=== PATIENT | female | born 1985 | race Caucasian/White ===

== ENCOUNTER 2019-09-26 17:03 | Emergency (ER) | payer OTHER ==
[2019-09-26] MEDS ORDERED: NS 1000 ML IV.SOLN IV ONE (17:56)
[2019-09-26] MEDS ORDERED: KETOROLAC TROMETHAMINE 30 MG VIAL ONE (17:56)
[2019-10-10 09:02] LABS: CALCIUM 9.6 mg/dL (8.4-11.0); CREATININE 0.83 mg/dL (0.55-1.30); POTASSIUM 3.7 mmol/L (3.5-5.1)
[2019-10-10 09:03] LABS: BASOPHILS % (AUTO) 0.3 % (0.0-2.0); EOSINOPHILS % (AUTO) 1.3 % (0.0-4.0); HEMOGLOBIN 13.3 g/dL (12.0-16.0); LYMPHOCYTES % (AUTO) 16.7 % (20.5-51.5); MEAN CORPUSCULAR HEMOGLOBIN 29 pg (27-31); MEAN CORPUSCULAR HGB CONC 33 % (32-36); MEAN CORPUSCULAR VOLUME 86 fL (79.0-98.0); MONOCYTES % (AUTO) 4.6 % (1.7-9.3); NEUTROPHILS % (AUTO) 77.1 % (40.0-70.0); PLATELET COUNT (AUTO) 336 K/uL (130-430); RED BLOOD CELL COUNT(AUTO) 4.64 MIL/uL (4.2-6.2); RED CELL DISTRIBUTION WIDTH 13.8 % (9.0-15.0); WHITE BLOOD COUNT (AUTO) 14.1 K/uL (4.8-10.8)
== END 2019-09-26 19:44 | disposition home or self-care (01) ==
LOC: SED 17:03
DX: J02.8 Acute pharyngitis due to other specified organisms (principal); B96.89 Other specified bacterial agents as the cause of diseases classified elsewhere
CPT/HCPCS: 36415; 71045; 80048; 85025; 93005; 96374; 99284; J1885; J7030

== ENCOUNTER 2020-03-20 04:12 | Emergency (ER) | payer OTHER ==
[~2020-03-20] VITALS: Ht 162.6 cm; Wt 90.7 kg
[2020-03-20 04:15] VITALS: BP_SYST 129
--- NOTE | 2020-03-20 04:21 | NUR ---
Patient to ER bed 7 to gown for evaluation. Side rails up. Report given to Shona MAK.
--- NOTE | 2020-03-20 04:22 | NUR ---
Patient is a&o x4 complaining of a sunburnt that she got yesterday from a drive thru graduation ceremony. Patient complains of burning sensations on her arms and neck rated at a 8 out of 10, arms are warm to the touch. Patient has been applied lotion and took a ibuprofen 600mg 10-15 mins ago. Patient states the "burning sensation is unbearable and muscles hurt and arms are heavy". Patient has drank 5-6 bottles of water today. patient denies n/v, SOB, and cough.
--- NOTE | 2020-03-20 04:29 | NUR ---
ER Dr. Douglas at bedside examining patient.
[2020-03-20] MEDS ORDERED: KETOROLAC TROMETHAMINE 30 MG VIAL IM ONE (04:45)
--- NOTE | 2020-03-20 04:59 | NUR ---
Urine HCG done, results NEGATIVE.
[2020-03-20 05:14] VITALS: BP_SYST 131
--- NOTE | 2020-03-20 05:14 | NUR ---
Patient given written and verbal discharge instructions and verbalizes understanding. ER MD discussed with patient the results and treatment provided. Patient in stable condition. ID arm band removed. Rx of Naprosyn, Bacitracin and Cut Off given. Patient educated on pain management and to follow up with PMD. Pain Scale 0/10 Opportunity for questions provided and answered. Medication side effect fact sheet provided.
== END 2020-03-20 05:14 | disposition home or self-care (01) ==
LOC: SED 04:12
DX: L56.8 Other specified acute skin changes due to ultraviolet radiation (principal)
CPT/HCPCS: 16000; 81025; 96372; 99283; J1885